=== PATIENT | male | born 1985 | race American Indian/Alaskan Native ===

== ENCOUNTER 2018-09-01 21:01 | Emergency (ER) | payer SELFPAY ==
[2018-09-01 21:44] LABS: Basophils # (Auto) 0.1 K/mm3 (0.0-0.1); Eosinophils # (Auto) 0.2 K/mm3 (0.0-0.4); Eosinophils % (Auto) 2.7 % (0.0-4.3); Hematocrit 39.7 % (35.5-45.6); Hemoglobin 14.2 gm/dl (11.8-15.2); Lymphocytes # (Auto) 1.4 K/mm3 (1.2-5.4); Mean Corpuscular HGB Conc 36 % (32-34); Mean Corpuscular Volume 91 fl (84-94); Monocytes # (Auto) 0.4 K/mm3 (0.0-0.8); Monocytes % (Auto) 6.5 % (0.0-7.3); Platelet Count 232 K/mm3 (140-440); Red Blood Count 4.38 M/mm3 (3.65-5.03); Red Cell Distribution Width 13.6 % (13.2-15.2)
[2018-09-01 22:03] LABS: Alanine Aminotransferase 24 units/L (7-56); Albumin 4.4 g/dL (3.9-5); BUN/Creatinine Ratio 5; Blood Urea Nitrogen 5 mg/dL (9-20); Calcium 9.2 mg/dL (8.4-10.2); Hemolysis Index 5
[2018-09-01 22:42] LABS: Bilirubin,Urine NEG (Negative); Blood,Urine NEG (Negative); Color,Urine Yellow (Yellow); Mucus,Urine FEW /HPF; Protein,Urine <15 mg/dL mg/dL (Negative); Urobilinogen,Urine < 2.0 mg/dL (<2.0); WBC,Urine < 1.0 /HPF (0.0-6.0)
[2018-09-01 22:44] LABS: Amphetamine Screen,Urine PRESUMPTIVE NEGATIVE; Benzodiazepines Screen,Urine PRESUMPTIVE NEGATIVE; Cannabinoid Screen,Urine PRESUMPTIVE NEGATIVE; Cocaine Screen,Urine PRESUMPTIVE NEGATIVE; Methadone Screen,Urine PRESUMPTIVE NEGATIVE; Opiate Screen,Urine PRESUMPTIVE NEGATIVE
--- NOTE | 2018-09-01 23:37 | Emergency Department Report ---
ED General Adult HPI - General Chief complaint: Medical Clearance Stated complaint: HALLUCINATION/HEARING VOICES Time Seen by Provider: 09/01/18 21:26 Source: patient Mode of arrival: Ambulatory Limitations: Other - History of Present Illness Initial comments: Patient presents to the emergency department a chief complaint of visual hallucinations. Patient states she has a history of schizophrenia has not taken his medications in greater than 2 years. Patient not homicidal suicidal ideation. Patient states he is here for help. At times is very difficult to obtain any history due to the patient's tangential speech. -: unknown Improves with: none Worsens with: none Treatments Prior to Arrival: none - Related Data Allergies Allergy/AdvReac Type Severity Reaction Status Date / Time Penicillins Allergy Rash Verified 09/01/18 21:05 ED Review of Systems ROS: Stated complaint: HALLUCINATION/HEARING VOICES Other details as noted in HPI Constitutional: denies: chills, fever Eyes: denies: eye pain, eye discharge, vision change ENT: denies: ear pain, throat pain Respiratory: denies: cough, shortness of breath, wheezing Cardiovascular: denies: chest pain, palpitations Endocrine: no symptoms reported Gastrointestinal: denies: abdominal pain, nausea, diarrhea Genitourinary: denies: urgency, dysuria Musculoskeletal: denies: back pain, joint swelling, arthralgia Skin: denies: rash, lesions Neurological: denies: headache, weakness, paresthesias Psychiatric: visual hallucinations. denies: anxiety, depression, auditory hallucinations, homicidal thoughts, suicidal thoughts Hematological/Lymphatic: denies: easy bleeding, easy bruising ED Past Medical Hx - Past Medical History Previous Medical History?: Yes Hx Hypertension: Yes Hx Diabetes: Yes Hx Psychiatric Treatment: Yes (schitzophrnenia, bipolor, multiple personality disorder, PTSD) - Surgical History Past Surgical History?: No Additional Surgical History: unknown - Social History Smoking Status: Current Every Day Smoker Substance Use Type: Alcohol ED Physical Exam - General Limitations: Other General appearance: alert, in no apparent distress - Head Head exam: Present: atraumatic, normocephalic - Eye Eye exam: Present: normal appearance - ENT ENT exam: Present: mucous membranes moist - Neck Neck exam: Present: normal inspection - Respiratory Respiratory exam: Present: normal lung sounds bilaterally. Absent: respiratory distress - Cardiovascular Cardiovascular Exam: Present: regular rate, normal rhythm. Absent: systolic murmur, diastolic murmur, rubs, gallop - GI/Abdominal GI/Abdominal exam: Present: soft, normal bowel sounds. Absent: distended, tenderness - Rectal Rectal exam: Present: deferred - Extremities Exam Extremities exam: Present: normal inspection - Back Exam Back exam: Present: normal inspection - Neurological Exam Neurological exam: Present: alert, oriented X3. Absent: CN II-XII intact, motor sensory deficit - Psychiatric Psychiatric exam: Present: other (visual hallucinations, tangential speech). Absent: homicidal ideation, suicidal ideation - Skin Skin exam: Present: warm, dry, intact, normal color. Absent: rash ED Course Vital Signs 09/01/18 21:06 Temperature 98.1 F Pulse Rate 94 H Respiratory 16 Rate Blood Pressure 159/100 O2 Sat by Pulse 99 Oximetry ED Medical Decision Making - Lab Data Result diagrams: 09/01/18 21:29 09/01/18 21:29 Lab Results 09/01/18 09/01/18 09/01/18 Range/Units 21:29 21:29 21:29 WBC 5.6 (4.5-11.0) K/mm3 RBC 4.38 (3.65-5.03) M/mm3 Hgb 14.2 (11.8-15.2) gm/dl Hct 39.7 (35.5-45.6) % MCV 91 (84-94) fl MCH 32 (28-32) pg MCHC 36 H (32-34) % RDW 13.6 (13.2-15.2) % Plt Count 232 (140-440) K/mm3 Lymph % (Auto) 26.0 (13.4-35.0) % Mccreary % (Auto) 6.5 (0.0-7.3) % Eos % (Auto) 2.7 (0.0-4.3) % Baso % (Auto) 1.0 (0.0-1.8) % Lymph # 1.4 (1.2-5.4) K/mm3 Mccreary # 0.4 (0.0-0.8) K/mm3 Eos # 0.2 (0.0-0.4) K/mm3 Baso # 0.1 (0.0-0.1) K/mm3 Seg Neutrophils % 63.8 (40.0-70.0) % Seg Neutrophils # 3.5 (1.8-7.7) K/mm3 Sodium 139 (137-145) mmol/L Potassium 3.5 L (3.6-5.0) mmol/L Chloride 102.7 (98-107) mmol/L Carbon Dioxide 25 (22-30) mmol/L Anion Gap 15 mmol/L BUN 5 L (9-20) mg/dL Creatinine 1.0 (0.8-1.5) mg/dL Estimated GFR > 60 ml/min BUN/Creatinine Ratio 5 % Glucose 91 (75-100) mg/dL Calcium 9.2 (8.4-10.2) mg/dL Total Bilirubin 0.50 (0.1-1.2) mg/dL AST 32 (5-40) units/L ALT 24 (7-56) units/L Alkaline Phosphatase 61 (35-129) units/L Total Protein 7.1 (6.3-8.2) g/dL Albumin 4.4 (3.9-5) g/dL Albumin/Globulin Ratio 1.6 % Urine Color (Yellow) Urine Turbidity (Clear) Urine pH (5.0-7.0) Ur Specific [place] (1.003-1.030) Urine Protein (Negative) mg/dL Urine Glucose (UA) (Negative) mg/dL Urine Ketones (Negative) mg/dL Urine Blood (Negative) Urine Nitrite (Negative) Urine Bilirubin (Negative) Urine Urobilinogen (<2.0) mg/dL Ur Leukocyte Esterase (Negative) Urine WBC (Auto) (0.0-6.0) /HPF Urine RBC (Auto) (0.0-6.0) /HPF Urine Mucus /HPF Salicylates (2.8-20.0) mg/dL Urine Opiates Screen Urine Methadone Screen Acetaminophen (10.0-30.0) ug/mL Ur Barbiturates Screen Ur Phencyclidine Scrn Ur Amphetamines Screen U Benzodiazepines Scrn Urine Cocaine Screen U Marijuana (THC) Screen Drugs of Abuse Note Plasma/Serum Alcohol < 0.01 (0-0.07) % 09/01/18 09/01/18 09/01/18 Range/Units 21:29 21:29 22:15 WBC (4.5-11.0) K/mm3 RBC (3.65-5.03) M/mm3 Hgb (11.8-15.2) gm/dl Hct (35.5-45.6) % MCV (84-94) fl MCH (28-32) pg MCHC (32-34) % RDW (13.2-15.2) % Plt Count (140-440) K/mm3 Lymph % (Auto) (13.4-35.0) % Mccreary % (Auto) (0.0-7.3) % Eos % (Auto) (0.0-4.3) % Baso % (Auto) (0.0-1.8) % Lymph # (1.2-5.4) K/mm3 Mccreary # (0.0-0.8) K/mm3 Eos # (0.0-0.4) K/mm3 Baso # (0.0-0.1) K/mm3 Seg Neutrophils % (40.0-70.0) % Seg Neutrophils # (1.8-7.7) K/mm3 Sodium (137-145) mmol/L Potassium (3.6-5.0) mmol/L Chloride (98-107) mmol/L Carbon Dioxide (22-30) mmol/L Anion Gap mmol/L BUN (9-20) mg/dL Creatinine (0.8-1.5) mg/dL Estimated GFR ml/min BUN/Creatinine Ratio % Glucose (75-100) mg/dL Calcium (8.4-10.2) mg/dL Total Bilirubin (0.1-1.2) mg/dL AST (5-40) units/L ALT (7-56) units/L Alkaline Phosphatase (35-129) units/L Total Protein (6.3-8.2) g/dL Albumin (3.9-5) g/dL Albumin/Globulin Ratio % Urine Color Yellow (Yellow) Urine Turbidity Clear (Clear) Urine pH 6.0 (5.0-7.0) Ur Specific [place] 1.011 (1.003-1.030) Urine Protein <15 mg/dl (Negative) mg/dL Urine Glucose (UA) Neg (Negative) mg/dL Urine Ketones Neg (Negative) mg/dL Urine Blood Neg (Negative) Urine Nitrite Neg (Negative) Urine Bilirubin Neg (Negative) Urine Urobilinogen < 2.0 (<2.0) mg/dL Ur Leukocyte Esterase Neg (Negative) Urine WBC (Auto) < 1.0 (0.0-6.0) /HPF Urine RBC (Auto) 1.0 (0.0-6.0) /HPF Urine Mucus Few /HPF Salicylates < 0.3 L (2.8-20.0) mg/dL Urine Opiates Screen Urine Methadone Screen Acetaminophen < 5.0 L (10.0-30.0) ug/mL Ur Barbiturates Screen Ur Phencyclidine Scrn Ur Amphetamines Screen U Benzodiazepines Scrn Urine Cocaine Screen U Marijuana (THC) Screen Drugs of Abuse Note Plasma/Serum Alcohol (0-0.07) % 09/01/18 Range/Units 22:15 WBC (4.5-11.0) K/mm3 RBC (3.65-5.03) M/mm3 Hgb (11.8-15.2) gm/dl Hct (35.5-45.6) % MCV (84-94) fl MCH (28-32) pg MCHC (32-34) % RDW (13.2-15.2) % Plt Count (140-440) K/mm3 Lymph % (Auto) (13.4-35.0) % Mccreary % (Auto) (0.0-7.3) % Eos % (Auto) (0.0-4.3) % Baso % (Auto) (0.0-1.8) % Lymph # (1.2-5.4) K/mm3 Mccreary # (0.0-0.8) K/mm3 Eos # (0.0-0.4) K/mm3 Baso # (0.0-0.1) K/mm3 Seg Neutrophils % (40.0-70.0) % Seg Neutrophils # (1.8-7.7) K/mm3 Sodium (137-145) mmol/L Potassium (3.6-5.0) mmol/L Chloride (98-107) mmol/L Carbon Dioxide (22-30) mmol/L Anion Gap mmol/L BUN (9-20) mg/dL Creatinine (0.8-1.5) mg/dL Estimated GFR ml/min BUN/Creatinine Ratio % Glucose (75-100) mg/dL Calcium (8.4-10.2) mg/dL Total Bilirubin (0.1-1.2) mg/dL AST (5-40) units/L ALT (7-56) units/L Alkaline Phosphatase (35-129) units/L Total Protein (6.3-8.2) g/dL Albumin (3.9-5) g/dL Albumin/Globulin Ratio % Urine Color (Yellow) Urine Turbidity (Clear) Urine pH (5.0-7.0) Ur Specific [place] (1.003-1.030) Urine Protein (Negative) mg/dL Urine Glucose (UA) (Negative) mg/dL Urine Ketones (Negative) mg/dL Urine Blood (Negative) Urine Nitrite (Negative) Urine Bilirubin (Negative) Urine Urobilinogen (<2.0) mg/dL Ur Leukocyte Esterase (Negative) Urine WBC (Auto) (0.0-6.0) /HPF Urine RBC (Auto) (0.0-6.0) /HPF Urine Mucus /HPF Salicylates (2.8-20.0) mg/dL Urine Opiates Screen Presumptive negative Urine Methadone Screen Presumptive negative Acetaminophen (10.0-30.0) ug/mL Ur Barbiturates Screen Presumptive negative Ur Phencyclidine Scrn Presumptive negative Ur Amphetamines Screen Presumptive negative U Benzodiazepines Scrn Presumptive negative Urine Cocaine Screen Presumptive negative U Marijuana (THC) Screen Presumptive negative Drugs of Abuse Note Disclamer Plasma/Serum Alcohol (0-0.07) % - Medical Decision Making 1013 applied awaiting assessment Critical care attestation.: If time is entered above; I have spent that time in minutes in the direct care of this critically ill patient, excluding procedure time. ED Disposition Clinical Impression: Psychosis Disposition: DC/TX-65 PSY HOSP/PSY UNIT Is pt being admited?: No Does the pt Need Aspirin: No Condition: Stable
--- NOTE | 2018-09-02 19:02 | Consultation ---
History of Present Illness - Reason for Consult Consult date: 09/02/18 Reason for consult: psychiatric evaluation - Chief Complaint Chief complaint: "I need a transitional place." - History of Present Psychiatric Illness 32 yo M arrived to [facility]/ED and a was placed on a 1013 for acute psychosis. His complaints are visual and auditory hallucinations of seeing/hearing alien men. He presents as disorganized but is able to answer questions. He was at [employer] until he was kicked out immediately prior to arrival at [facility]. He says he lost his SSI. It is suspected this occurred after he went to [facility] for 40 days approx 1 mo ago. [place] [facility] [place] and might have received an Invega sustenna injection. He is observed to turn his head and takes longer to swallow than normal. Medications and Allergies Allergies Allergy/AdvReac Type Severity Reaction Status Date / Time Penicillins Allergy Rash Verified 09/01/18 21:05 Past psychiatric history - Past Medical History Past Medical History: No medical history, other (unable to obtain) - past Psychiatric treatment and history Psych: Psychosis, Schizophrenia psychiatric treatment history: multiple inpatient facilities last one possibly one week ago [place] [facility] - Social History Social history: other (now homeless) Mental Status Exam - Vital signs Last Vital Signs Temp 97.8 F 09/02/18 14:46 Pulse 89 09/02/18 14:46 Resp 18 09/02/18 14:46 BP 124/88 09/02/18 14:46 Pulse Ox 97 09/02/18 14:46 - Exam Orientation: time, place, person Affect: other (indifferent) Thought content: other (denies suicidal/homicidal ideation) Thought Process: Disorganized Perceptions: visual, auditory, hallucinations Speech: pressured Concentration: distractible Motor activity: other (see HPI) Level of consciousness: alert Memory: Intact Sleep Symptoms: None Interaction: cooperative Results Result Diagrams: 09/01/18 21:29 09/01/18 21:29 Abnormal lab results 09/01/18 09/01/18 09/01/18 Range/Units 21:29 21:29 21:29 MCHC 36 H (32-34) % Potassium 3.5 L (3.6-5.0) mmol/L BUN 5 L (9-20) mg/dL Salicylates < 0.3 L (2.8-20.0) mg/dL Acetaminophen (10.0-30.0) ug/mL 09/01/18 Range/Units 21:29 MCHC (32-34) % Potassium (3.6-5.0) mmol/L BUN (9-20) mg/dL Salicylates (2.8-20.0) mg/dL Acetaminophen < 5.0 L (10.0-30.0) ug/mL All other labs normal. Assessment and Plan Assessment and plan: Impression: Psychosis unspecified likely history of schizophrenia UDS neg no etoh abnormal swallowing behavior observed Recommendation order TSH/free t4 r/o EPS hold antipsychotics. It is unclear if he had Invega Sustenna one week ago. dispo: continue 1013 and transfer to inpatient psych facility staffed with Dr. Thrasher
--- NOTE | 2018-09-03 17:50 | Progress Note ---
Subjective - Reason for Consult Consult date: 09/03/18 Reason for consult: follow up - Chief Complaint Chief complaint: "good" 32 yo M arrived to [facility]/ED and a was placed on a 1013 for acute psychosis. His complaints are visual and auditory hallucinations of seeing/hearing alien men. He presents as disorganized but is able to answer questions. He was at [facility] until he was kicked out immediately prior to arrival at [facility]. He says he lost his SSI. It is suspected this occurred after he went to [facility] for 40 days approx 1 mo ago. He reports going to [facility] one week ago and might have received an Invega sustenna injection. No changes reported today. He is expected to go to [facility], pending transport time. Mental Status Exam - Vital signs Last Vital Signs Temp 98.0 F 09/03/18 13:00 Pulse 77 09/03/18 13:00 Resp 18 09/03/18 13:00 BP 140/82 09/03/18 13:00 Pulse Ox 100 09/03/18 13:00 - Exam Narrative exam: Orientation: time, place, person Affect: other (indifferent) Thought content: other (denies suicidal/homicidal ideation) Thought Process: Disorganized Perceptions: visual, auditory, hallucinations Speech: pressured Concentration: distractible Motor activity: other (see HPI) Level of consciousness: alert Memory: Intact Sleep Symptoms: None Interaction: cooperative Assessment and Plan Impression: Psychosis unspecified likely history of schizophrenia UDS neg no etoh abnormal swallowing behavior observed---TSH abnormal 0.265. No signs of thyrotoxicosis. He has no acute physical complaints. Recommendation medical team to address abnormal TSH. hold antipsychotics. It is unclear if he had Invega Sustenna one week ago. Records from [facility] needed to verify. dispo: continue 1013 and transfer to inpatient psych facility ([facility]) staffed with Dr. Thrasher
[2018-09-04] MEDS ORDERED: ATIVAN IM ONE (13:50)
--- NOTE | 2018-09-04 14:19 | Progress Note ---
Subjective - Reason for Consult Consult date: 09/04/18 Reason for consult: Psychiatry Follow-up - Chief Complaint Chief complaint: "I need my medications refilled" 32 yo M arrived to [facility]/ED and a was placed on a 1013 for acute psychosis. Today the patient was calm, but disorganized during the assessment. He had to be redirected several times to keep him on topic. He is adamant that he need his medications refilled that he cannot ID. Overall, the patient is a poor historian at this time. No gestures of SI/HI's. Mental Status Exam - Vital signs Last Vital Signs Temp 97.8 F 09/04/18 07:42 Pulse 82 09/04/18 07:42 Resp 18 09/04/18 07:42 BP 114/80 09/04/18 07:42 Pulse Ox 97 09/04/18 07:42 - Exam Narrative exam: MSE: Appearance: calm Behavior: regular eye contact Speech: regular rate and tone Mood: preoccupied Affect: congruent to mood Thought Process: disorganized Thought Content: no gestures of SI/Hi's Motor Activity: ambulatory Cognition: A/O x3 Insight: poor Judgment: poor Assessment and Plan Impression: Unspecified Psychosis. Today the patient was calm, but disorganized during the assessment. UDS is negative. DDx: MDD with psychosis Recommendation/Plan: Continue 1013. Dispo: The patient was accepted at [facility] for inpatient psy services. Will staff with Dr Natan Thrasher.
[2018-09-04 17:07] VITALS: BP 117/82
== END 2018-09-04 17:30 ==
LOC: ED 21:01 → EEVIPCON 21:01 → ED 09-04 17:30
DX: F29 Unspecified psychosis not due to a substance or known physiological condition (principal); I10 Essential (primary) hypertension; E11.9 Type 2 diabetes mellitus without complications; F20.9 Schizophrenia, unspecified; F31.9 Bipolar disorder, unspecified; F43.10 Post-traumatic stress disorder, unspecified; F17.200 Nicotine dependence, unspecified, uncomplicated; Z88.0 Allergy status to penicillin; Z79.899 Other long term (current) drug therapy
CPT/HCPCS: 36415; 80053; 80307; 81001; 84439; 84443; 85025; 96372; 99285; J2060; 80320; G0480